=== PATIENT | male | born 1970 | race Caucasian/White ===

== ENCOUNTER 2021-07-16 19:46 | Emergency (ER) | payer SELFPAY ==
[~2021-07-16] VITALS: Ht 177.8 cm; Wt 90.7 kg
[~2021-07-16 19:46] MED LIST: CEPH500 PO; ERYT1OIN BOTHEYES; Norco 7.5-3251 EACH PO
[2021-07-16 20:26] LABS: Source, Urine Clean Catch
[2021-07-16 20:28] LABS: Bilirubin, Urine Neg (Neg); Blood, Urine Neg (Neg); Glucose Qualitative, Urine Neg (Neg); Ketones, Urine Neg (Neg); Leukocyte Esterase, Urine Neg (Neg); Nitrite, Urine Neg (Neg); Protein, Urine Neg (Neg); Urobilinogen, Urine NORM (Normal)
[2021-07-16 20:32] LABS: Appearance, Urine Clear (Clear); Color, Urine Yellow (P-Yellow)
[2021-07-16 21:02] LABS: SARS-Cov-2 (COVID-19) PCR, MMC NEGATIVE (NEGATIVE)
== END 2021-07-16 21:30 | disposition left against medical advice (07) ==
LOC: ER 19:46
PROVIDERS: Physician Assistant
DX: R50.9 Fever, unspecified (principal); M79.10 Myalgia, unspecified site; R07.9 Chest pain, unspecified; R51.9 Headache, unspecified; R11.2 Nausea with vomiting, unspecified; Z53.21 Procedure and treatment not carried out due to patient leaving prior to being seen by health care provider; Z20.822 Contact with and (suspected) exposure to COVID-19
CPT/HCPCS: 81003; 99283; A9270; U0004

== ENCOUNTER 2021-07-19 17:39 | Emergency (ER) | payer SELFPAY ==
[~2021-07-19] VITALS: Ht 177.8 cm; Wt 90.7 kg
[2021-07-19 18:14] LABS: BASOPHILS ABSOLUTE AUTO 0.03 K/mm3 (0.00-0.23); BASOPHILS PERCENT AUTO 0 % (0-2); EOSINOPHILS ABSOLUTE AUTO 0.06 K/mm3 (0.00-0.68); EOSINOPHILS PERCENT AUTO 1 % (0-6); Hematocrit 44.6 % (37.0-53.0); Hemoglobin 15.3 g/dL (13.5-17.5); IMMATURE GRAN ABSOLUTE AUTO 0.06 K/mm3 (0.00-0.10); IMMATURE GRAN PERCENT AUTO 1 % (0-1); LYMPHOCYTES ABSOLUTE AUTO 1.94 K/mm3 (0.84-5.20); LYMPHOCYTES PERCENT AUTO 20 % (21-46); MONOCYTES PERCENT AUTO 11 % (4-13); Mean Corpuscular HGB 28.2 pg (26.0-34.0); Mean Corpuscular HGB Conc 34.3 g/dL (31.5-36.5); Mean Corpuscular Volume 82 fL (80-100); Mean Platelet Volume 10.6 fL (9.1-12.4); NEUTROPHILS ABSOLUTE AUTO 6.74 K/mm3 (1.96-9.15); NEUTROPHILS PERCENT AUTO 68 % (41-73); Platelet Count 200 K/mm3 (150-400); RDW Coefficient Variation 13.1 % (11.7-14.2); RDW Standard Deviation 38.8 fL (35.1-46.3); Red Blood Cell Count 5.43 M/mm3 (4.30-5.90); White Blood Cell Count 9.93 K/mm3 (4.00-11.30)
[2021-07-19 18:32] LABS: Alanine Aminotransfer (ALT/SGP 40 U/L (12-78); Albumin, Blood 3.3 g/dL (3.4-5.0); Albumin/Globulin Ratio 0.6 (0.8-1.8); Alk Phos 138 U/L (50-136); Anion Gap 6 mmol/L (6-16); Aspartate Aminotrans (AST/SGOT 23 U/L (12-37); Bilirubin, Total 0.5 mg/dL (0.1-1.0); Blood Urea Nitrogen 13 mg/dL (8-24); Bun/Creatinine Ratio 13.8 (12.0-20.0); CO2, Blood 26 mmol/L (21-32); Calcium, Blood 9.1 mg/dL (8.5-10.1); Chloride, Blood 103 mmol/L (98-108); Creatinine, Blood 0.94 mg/dL (0.60-1.20); Globulin, Blood 5.2 g/dL (2.2-4.0); Glomerular Filtration Rate >60 (60-); Glucose, Blood 149 mg/dL (70-99); Potassium, Blood 3.5 mmol/L (3.5-5.5); Sodium, Blood 135 mmol/L (136-145); Total Protein, Blood 8.5 g/dL (6.4-8.2)
[2021-07-19] MEDS ORDERED: CEPH500 PO ×2 (20:01→21:16)
== END 2021-07-19 21:24 | disposition home or self-care (01) ==
LOC: ER 17:39
PROVIDERS: Physician Assistant
DX: L03.116 Cellulitis of left lower limb (principal); F17.200 Nicotine dependence, unspecified, uncomplicated; Z88.0 Allergy status to penicillin
CPT/HCPCS: 36415; 80053; 85025; 93971; 96365; 99284-25; A9270; J0690

== ENCOUNTER 2024-10-22 12:43 | Observation (INO) | payer MEDICARE, OTHER ==
[~2024-10-22] VITALS: Ht 177.8 cm; Wt 103.2 kg
[2024-10-22 13:22] LABS: BASOPHILS ABSOLUTE AUTO 0.05 K/mm3 (0.00-0.23); BASOPHILS PERCENT AUTO 1 % (0-2); EOSINOPHILS ABSOLUTE AUTO 0.65 K/mm3 (0.00-0.68); EOSINOPHILS PERCENT AUTO 8 % (0-6); Hematocrit 44.7 % (37.0-53.0); Hemoglobin 14.9 g/dL (13.5-17.5); IMMATURE GRAN ABSOLUTE AUTO 0.03 K/mm3 (0.00-0.10); IMMATURE GRAN PERCENT AUTO 0 % (0-1); LYMPHOCYTES ABSOLUTE AUTO 1.55 K/mm3 (0.84-5.20); LYMPHOCYTES PERCENT AUTO 20 % (21-46); MONOCYTES ABSOLUTE AUTO 0.72 K/mm3 (0.16-1.47); MONOCYTES PERCENT AUTO 9 % (4-13); Mean Corpuscular HGB 28.5 pg (26.0-34.0); Mean Corpuscular HGB Conc 33.3 g/dL (31.5-36.5); Mean Corpuscular Volume 86 fL (80-100); Mean Platelet Volume 10.5 fL (9.1-12.4); NEUTROPHILS ABSOLUTE AUTO 4.95 K/mm3 (1.96-9.15); NEUTROPHILS PERCENT AUTO 62 % (41-73); Platelet Count 188 K/mm3 (150-400); RDW Coefficient Variation 13.4 % (11.7-14.2); RDW Standard Deviation 41.7 fL (35.1-46.3); Red Blood Cell Count 5.22 M/mm3 (4.30-5.90); White Blood Cell Count 7.95 K/mm3 (4.00-11.30)
[2024-10-22 13:42] LABS: Albumin, Blood 3.6 g/dL (3.4-5.0); Bilirubin, Total 0.4 mg/dL (0.1-1.0); Bun/Creatinine Ratio 16.9 (12.0-20.0); Creatinine, Blood 0.94 mg/dL (0.60-1.20); Globulin, Blood 3.6 g/dL (2.2-4.0); Potassium, Blood 4.1 mmol/L (3.5-5.5); Total Protein, Blood 7.2 g/dL (6.4-8.2)
[2024-10-22 13:49] LABS: Ethanol (Alcohol), Blood, Med <3 mg/dL; Magnesium, Blood 2.2 mg/dL (1.6-2.4); Prolactin 3.1 ng/mL (2.5-17.4)
[2024-10-22] MEDS ORDERED: LevETIRAcetam 500 MG Tab PO ONE (15:00)
[2024-10-22] MEDS ORDERED: Aspirin 81 MG Chew PO ONE (15:00)
[2024-10-22] MEDS ORDERED: Clopidogrel Bisulfate 75 MG Tab PO ONE (15:00)
[2024-10-22 16:38] LABS: Source, Urine Clean Catch
[2024-10-22 16:53] LABS: Bilirubin, Urine Neg (Neg); Blood, Urine Neg (Neg); Glucose Qualitative, Urine Neg (Neg); Ketones, Urine Neg (Neg); Leukocyte Esterase, Urine Neg (Neg); Nitrite, Urine Neg (Neg); Protein, Urine 1+ (Neg); Urobilinogen, Urine NORM (Normal); pH, Urine 6.5 (5.0-8.0)
[2024-10-22] MEDS ORDERED: Acetaminophen 500 MG Tab PO PRN (16:55)
[2024-10-22] MEDS ORDERED: FLU VACC TS2024-25(6MOS UP)/PF 45 MCG/0.5 ML SYRINGE IM SCH (16:55)
[2024-10-22] MEDS ORDERED: Polyethylene Glycol 3350 17 gm PO PRN (17:00)
[2024-10-22 17:17] LABS: U Amphetamine Screen DETECTED; U Barbituate Screen Not Detected; U Benzodiazapine Screen Not Detected; U Buprenorphine Screen Not Detected; U Cannabinoids Screen Not Detected; U Cocaine Screen Not Detected; U Methadone Screen Not Detected; U Methamphetamine Screen DETECTED; U Opiates Screen Not Detected; U Oxycodone Screen Not Detected; U Phencyclidine Screen Not Detected
[2024-10-22 17:32] LABS: Appearance, Urine Clear (Clear); Color, Urine Pale Yellow (P-Yellow)
[2024-10-22 19:15] VITALS: BP 136/78
[2024-10-22] MEDS ORDERED: LevETIRAcetam 500 MG Tab PO SCH (21:00)
--- NOTE | 2024-10-23 00:29 | NUR ---
0025 PATIENT NEURO CHECK DONE. NO CHANGES. ALERT AND ORIENTED. PT FOLLOWS COMANDS AND HAS NO NOTED PHYSICAL DEFICITS. PATIENT STATED HE HAD A FUNNY TASTE IN HIS MOUTH BEFORE HE BLACKED OUT TODAY. HAS RESTED SOME TONIGHT, BUT AWAKE WATCHING TV AT THIS TIME. DENIES ANY NEEDS.
[2024-10-23 02:20] VITALS: BP 125/79
--- NOTE | 2024-10-23 06:43 | NUR ---
Rn shift summary: Patient is alert and oriented. Neuro checks have been WNL. Pt denies any weakness or change in neuro status. Pupils are equal and reactive. Patient has been up independantly to the BR. Pt has had no pain. He hopes to be discharged today. Plan is for an ECho today. Call light is in reach. Seizure pads in place on bed.
[2024-10-23 07:34] VITALS: BP 116/58
[2024-10-23] MEDS ORDERED: Clopidogrel Bisulfate 75 MG Tab PO SCH (09:00)
[2024-10-23] MEDS ORDERED: Aspirin 81 MG Chew PO SCH (09:00)
[2024-10-23] MEDS ORDERED: LEVE500 PO (11:10)
--- NOTE | 2024-10-23 11:48 | NUR ---
DISCHARGE INSTRUCTIONS AND EDUCATION DISCUSSED WITH PT, PRINTED COPY PROVIDED. IV REMOVED BY ADHESIVE PRIMER, TELE DISCONTINUED. PT CONTINUES TO DENY ANY SYMPTOMS. PT STATES WILL BE PROVIDING TRANSPORTATION HOME. DISCUSSED REFERRAL TO NEUROLOGIST, APPRECIATE ASSISTANCE OF NURSE PRIVATE DUTY AND MANAGER WELLNESS IN COMPLETING REFERRAL TO DR. LOVELACE. PROVIDED PT WITH PHONE NUMBER TO DR. LOVELACE AND INSTRUCTED PT TO CALL AND SCHEDULE APPOINTMENT. PT REFUSED WHEELCHAIR RIDE TO PRIVATE VEHICLE, ALL PERSONAL BELONGINGS SENT HOME WITH PT.
== END 2024-10-23 11:53 | disposition home or self-care (01) ==
LOC: ER 12:43 → MEDS 12:44 → ENPENDDIS 10-23 11:14 → MEDS 10-23 11:53
PROVIDERS: Emergency Medicine; ADMIT Internal Medicine
DX: R56.9 Unspecified convulsions (principal); Z88.0 Allergy status to penicillin; F17.210 Nicotine dependence, cigarettes, uncomplicated
CPT/HCPCS: 70450; 70496; 70498; 70553; 71045; 80053; 80320; 82947; 83605; 83735; 84146; 85025; 93005; 93010; 99285-25; A9270; A9579; G0378; Q9967